=== PATIENT | female | born 1950 | race Caucasian/White ===

== ENCOUNTER 2016-08-27 22:34 | Emergency (ER) | payer MEDICARE ==
[2016-08-27 22:35] VITALS: BMI 32.5
[2016-08-27 23:03] VITALS: TEMP 98.9
[2016-08-28] MEDS ORDERED: HYDROmorphone 1 MG INJECTION IM ONE ×2 (00:10→00:49)
[2016-08-28] MEDS ORDERED: GABAPENTIN 300 MG CAP PO ONE (00:14)
--- NOTE | 2016-08-28 00:18 | EDPRACDOC ---
- General Information Information Source: Patient Mode Of Arrival: Car - History of Present Illness Onset: 24 HOURS HPI: PT STATES SHE HAS BEEN DEALING WITH RESTLESS LEG FOR YEARS AND HAD BEEN ON MIRAPEX BUT STOPPED WORKING, SAW DR. DAIGLE 1-2 DAYS AGO AND WAS CHANGED TO REQUIP AND THEN STARTED ON KLONOPIN BUT STATES THE KLONOPIN MADE IT WORSE AND THE REQUIP DIDNT HELP AT ALL. STATES SHE IS HAVING A LOT OF PAIN AND CANT SLEEP B/C HER LEGS KEEP DRAWING UP AND HURTING. Circumstances: Reports: Other (RESTLESS LEG SYNDROME) History of: Reports: Other (RLS) Severity: Reports: Moderate Able to Bear Weight: Fully Pain In: Reports: Leg (BILATERAL LEGS WORSE AT NIGHT) <Jerry Salinas - Last Filed: 08/28/16 01:50> <Faiza Fournier - Last Filed: 08/28/16 02:10> - General Information Chief Complaint: Lower Leg Pain Stated Complaint: LEG PAIN, UNABLE TO SLEEP Time Seen by Provider: 08/28/16 00:04 Home Medications: Home Medications Ciprofloxacin HCl [Cipro] 500 mg PO BID #14 tab 12/26/15 Metoprolol Tartrate 50 mg PO BID #60 tablet 12/26/15 Pramipexole [Mirapex] 0.125 mg PO HS 12/26/15 Gabapentin Enacarbil [Horizant] 600 mg PO DAILY #20 tab.er.24h 08/28/16 Oxycodone Immediate Release [Oxycodone Immediate Release (OxyIR)] 5 mg PO Q6H PRN #15 tab 08/28/16 Allergies/Adverse Reactions: Allergies Allergy/AdvReac Type Severity Reaction Status Date / Time meperidine HCl [From Demerol] Allergy Fainting Verified 10/17/14 14:32 ED Past Medical History - History Reviewed Yes Nurses notes reviewed and agree except as marked Travel Outside of [place] in the Last 3 Months?: No - Patient Medical History Cardiac History: Reports: Hypertension, Hypercholesterolemia Musculoskeletal History: Reports: Other (RESTLESS LEG SYNDROME) Psychological History: Denies: Depression Surgical History: Reports: Cholecystectomy - Social Medical History Smoking Status: Never smoker ETOH: None Substance Abuse: None Lives With: Other Lives In: Home <Jerry Salinas - Last Filed: 08/28/16 01:50> EDM Review of Systems - Review of Systems ROS Negative Except as Marked: Yes All systems reviewed and were negative except as marked Constitutional: No Symptoms Reported. negative: Fever, Chills, Weakness, Fatigue, Loss of Appetite Eyes: No Symptoms Reported. negative: Redness, Blurred Vision, Double Vision, Discharge, Pain, Light Sensitive, Photophobia Ears: No Symptoms Reported. negative: Pain, Hearing Loss, Drainage, Ear Pulling Throat: No Symptoms Reported. negative: Pain, Swelling Nose: No Symptoms Reported. negative: Congestion, Bleeding, Discharge, Injection, Swelling, Deformity, Ecchymosis, Tender, Abrasion, Laceration Mouth: No Symptoms Reported. negative: Pain, Drooling Respiratory: No Symptoms Reported. negative: Cough, Brassy Cough, Barky Cough, Shortness of Breath, Wheezing, Hemoptysis Cardiovascular: No Symptoms Reported. negative: Chest Pain, Palpitations, Syncope, Edema, Orthopnea, PND, Skin Mottling, Cyanosis Gastrointestinal: No Symptoms Reported. negative: Pain, Constipation, Nausea, Vomiting, Diarrhea, Melena, Formula Intolerance Genitourinary: No Symptoms Reported. negative: Dysuria, Hematuria, Frequency, Discharge, Bleeding, Testicular Pain, Neurological: Other (RESTLESS LEG SYNDROME WITH BILATERAL LEG PAIN AND DRAWING) . negative: Dizziness, Gait Difficulty, Headache, Numbness, Seizure, Speech Difficulty, Weakness Musculoskeletal: No Symptoms Reported. negative: Neck, Chestwall, Ribs, Back, Shoulder, Arm, Elbow, Forearm, Wrist, Hand, Pelvis, Hip, Femur, Knee, Leg, Ankle , Foot Integumentary: No Symptoms Reported. negative: Itching, Rash, Bruising, Wound Allergic/Immunologic: No Symptoms Reported. negative: Hives, Itching Hematologic: No Symptoms Reported. negative: Lymphadenopathy, Easy Bruising, Easy Bleeding Endocrine: No Symptoms Reported. negative: Weight Gain, Weight Loss Psychiatric: No Symptoms Reported. negative: Anxiety, Depression, Hallucinations, Insomnia, Suicidal <Jerry Salinas - Last Filed: 08/28/16 01:50> - Physical Exam Constitutional: No apparent distress, Alert (Awake), Other (PT IS MOVING HER LEGS ABOUT IN THE BED APPEARS TO BE LOOKING FOR COMFORTABLE POSITION.) Oriented to: Time, Person, Place Last recorded Vital Signs: Last Vital Signs Temp 98.9 F 08/27/16 23:00 Pulse 92 01/12/17 23:00 Resp 20 08/27/16 23:00 BP 153/84 08/27/16 23:00 Pulse Ox 97 08/27/16 23:00 Oxygen Pulse Oxygen Saturation 97 O2 Device Room Air Oxygen Flow Rate Fraction of Inspired Oxygen ( FIO2) - HEENT Head: Normal ( normocephalic) Eye Exam: Normal (PERRL, EOMI, Sclera white) Oropharynx: Normal (Pharynx:Moist without exudate,Gums-no swelling) Tympanic Membrane: Normal ENT EAC: Normal TMJ: Normal Nose: No Symptoms Reported (septum midline) Neck: Normal (FROM, trachea at midline) - Respiratory/Cardiovascular Respiratory: Normal - CTA (BBS clear to auscultation without adventitious sounds ) Cardiovascular: Normal (RRR without murmur, gallop or rub) - GI Auscultation: Normal (NABS) Palpation: Normal (Soft,No rebound or guarding, non distended) Tenderness: Non tender Gutierrez's Sign: Negative - Musculoskeletal Back: Normal (Non-Tender) Extremities: Normal (Normal tone, Pulses 2+ No cyanosis or edema, FROM) - Integumentary Skin: Normal, Warm, Dry Lymphatics: Normal (no adenopathy) - Neurologic Memory Impaired: Normal Motor Function: Normal (Normal tone, Pulses 2+ No cyanosis or edema, FROM) Cranial Nerve: Normal (CN II-X11 intact sensation, strength 5/5) Cerebellar: Normal Mood Description: Normal Perception: Normal <Jerry Salinas - Last Filed: 08/28/16 01:50> - Physical Exam Last recorded Vital Signs: Last Vital Signs Temp 98.9 F 08/27/16 23:00 Pulse 92 08/27/16 23:00 Resp 20 08/27/16 23:00 BP 153/84 08/27/16 23:00 Pulse Ox 97 08/27/16 23:00 Oxygen Pulse Oxygen Saturation 97 O2 Device Room Air Oxygen Flow Rate Fraction of Inspired Oxygen ( FIO2) <Faiza Fournier - Last Filed: 08/28/16 02:10> - Differential Diagnosis Other (BILATERAL LEG SPASM/RESTLESS LEG SYNDROME) <Jerry Salinas - Last Filed: 08/28/16 01:50> - Re-evaluation Re-evaluation 3 Re-evaluation Time: 01:45 (SEEN AND AGREE, NONTOXIC) <Fournier,Faiza N - Last Filed: 08/28/16 02:10> Decision Time to Discharge: 01:51 - Departure Disposition: Home Education/Counseling Given To: Patient Education/Counseling Given Regarding: Diagnosis, Treatment, Prognosis, Follow Up <Jerry Salinas - Last Filed: 08/28/16 01:50> <Faiza Fournier - Last Filed: 08/28/16 02:10> - Departure Condition: Stable Final Diagnosis: Restless leg syndrome Instructions: Restless Legs Syndrome (ED) Referrals: Lenny Daigle II, MD [Primary Care Provider] - One Week Prescriptions: Gabapentin Enacarbil [Horizant] 600 mg PO DAILY #20 tab.er.24h Oxycodone Immediate Release [Oxycodone Immediate Release (OxyIR)] 5 mg PO Q6H PRN #15 tab PRN Reason: Pain Additional Instructions: STOP YOUR REQUIP AND START GABAPENTIN KAREN, FOLLOW UP WITH YOUR PRIMARY CARE DOCTOR KAREN FOR FURTHER EVALUATION.
[2016-08-28] MEDS ORDERED: OXYCODONE HCL 5 MG TABLET PO ONE (00:49)
[2016-08-28] MEDS ORDERED: DIAZEPAM 5 MG TAB PO ONE (01:50)
[2016-08-28 02:22] VITALS: BP 153/89; PULSE 86
== END 2016-08-28 02:22 | disposition home or self-care (01) ==
LOC: ED 22:34
DX: G25.81 Restless legs syndrome (principal)
CPT/HCPCS: 96372; 99283; A9270; J1170; J3490

== ENCOUNTER 2016-08-29 15:59 | Emergency (ER) | payer MEDICARE ==
[2016-08-29 16:01] VITALS: BMI 32.5
[2016-08-29 16:16] VITALS: TEMP 97.8
[2016-08-29 16:34] LABS: AUTOMATED BASOPHIL 0.8 % (0-2); AUTOMATED EOSINOPHIL 3.5 % (0-5); AUTOMATED LYMPH 39.8 % (17-44); AUTOMATED MONOCYTE 7.9 % (3-10); MPV 8.1 fL (7.4-10.4)
[2016-08-29 16:41] LABS: LEUKOCYTES/URINE 2+ (NEGATIVE); NITRITE/URINE NEG (NEGATIVE); URINE OCCULT BLOOD 1+ (NEG/TRACE)
[2016-08-29 16:48] LABS: BLOOD UREA NITROGEN 20 MG/DL (7-17); CALCULATED OSMOLALITY 271 MOs/Kg (270-290); CHLORIDE 102 mEq/L (98-107); GLUCOSE 99 MG/DL (70-99); SODIUM LEVEL 139 mEq/L (137-146); TOTAL PROTEIN 7.7 G/DL (6.3-8.2)
[2016-08-29] MEDS ORDERED: ONDANSETRON HCL 4 MG/2 ML VIAL IV ONE (17:14)
[2016-08-29] MEDS ORDERED: MORPHINE 4 MG/ML INJECTION IV ONE (17:14)
[2016-08-29] MEDS ORDERED: SODIUM CHLORIDE 0.9% 10 ML FLUSH FLUSH PRN (17:14)
[2016-08-29] MEDS ORDERED: NS 1,000 ML IV ONE (17:14)
--- NOTE | 2016-08-29 17:17 | EDPRACDOC ---
- General Information Information Source: Patient Mode Of Arrival: Car - History of Present Illness Onset: THIS AM Pain Location: Reports: Epigastric Pain Context: Reports: Spontaneous Pain Severity: Moderate Pain Quality: Reports: Aching, Sharp Pain Radiation: Reports: No Radiation Adult Abdominal History: Reports: Abdominal Surgery Modifying Factors: improves with: Nothing Female Associated Signs & Symptoms: Denies: Nausea, Frequency, Vaginal Bleeding , Vomiting, Hematemesis, Anorexia, Diarrhea, Melena, Dysuria, Fever, Urgency, Hematuria, Chills, Vaginal Discharge, Other Oral Intake: Normal Urinary Output: Normal <Jo Shukla - Last Filed: 08/29/16 18:14> <Vicky Hinojosa - Last Filed: 08/29/16 18:53> - General Information Chief Complaint: Abdominal Pain Stated Complaint: ABD PAIN ? HERNIA Time Seen by Provider: 08/29/16 17:08 Home Medications: Home Medications Metoprolol Tartrate 50 mg PO BID #60 tablet 12/26/15 Oxycodone Immediate Release [Oxycodone Immediate Release (OxyIR)] 5 mg PO Q6H PRN #15 tab 08/28/16 ClonazePAM [Klonopin] 0.5 mg PO BID 08/29/16 Gabapentin [Neurontin] 100 mg PO TID 08/29/16 Hydrocodone/Acetaminophen [Lortab 5-325 mg Tablet] 1 each PO Q4H PRN #15 tablet 08/29/16 Pramipexole [Mirapex] 0.5 mg PO HS 08/29/16 Ropinirole HCl [Requip] 0.25 mg PO BID 08/29/16 Sulfamethoxazole/Trimethoprim [Bactrim Ds Tablet] 1 tab PO BID #14 tab 08/29/16 Allergies/Adverse Reactions: Allergies Allergy/AdvReac Type Severity Reaction Status Date / Time meperidine HCl [From Demerol] Allergy Fainting Verified 10/17/14 14:32 - History of Present Illness HPI: Pt states upper abd pain x 1 day. Pt states seh went to urgent care and told to have hernia evaluated. Denies fever, n/v, changes in bowel or bladder, rash. (Jo Shukla) ED Past Medical History - History Reviewed Yes Nurses notes reviewed and agree except as marked - Patient Medical History Cardiac History: Reports: Hypertension, Hypercholesterolemia Psychological History: Denies: Depression Surgical History: Reports: Cholecystectomy - Social Medical History Smoking Status: Never smoker ETOH: None Substance Abuse: None <Jo Shukla - Last Filed: 08/29/16 18:14> EDM Review of Systems - Review of Systems Constitutional: No Symptoms Reported. negative: Fever, Chills, Weakness, Fatigue, Loss of Appetite Ears: No Symptoms Reported. negative: Pain, Hearing Loss, Drainage, Ear Pulling Throat: No Symptoms Reported. negative: Pain, Swelling Nose: No Symptoms Reported. negative: Congestion, Bleeding, Discharge, Injection, Swelling, Deformity, Ecchymosis, Tender, Abrasion, Laceration Mouth: No Symptoms Reported. negative: Pain, Drooling Respiratory: No Symptoms Reported. negative: Cough, Brassy Cough, Barky Cough, Shortness of Breath, Wheezing, Hemoptysis Cardiovascular: No Symptoms Reported. negative: Chest Pain, Palpitations, Syncope, Edema, Orthopnea, PND, Skin Mottling, Cyanosis Gastrointestinal: Pain. negative: No Symptoms Reported, Constipation, Diarrhea , Formula Intolerance, Melena, Nausea, Vomiting Genitourinary: No Symptoms Reported. negative: Dysuria, Hematuria, Frequency, Discharge, Bleeding, Testicular Pain, Neurological: No Symptoms Reported. negative: Headache, Dizziness, Seizure, Numbness, Weakness, Speech Difficulty, Gait Difficulty Musculoskeletal: No Symptoms Reported. negative: Neck, Chestwall, Ribs, Back, Shoulder, Arm, Elbow, Forearm, Wrist, Hand, Pelvis, Hip, Femur, Knee, Leg, Ankle , Foot Integumentary: No Symptoms Reported. negative: Itching, Rash, Bruising, Wound Allergic/Immunologic: No Symptoms Reported. negative: Hives, Itching Hematologic: No Symptoms Reported. negative: Lymphadenopathy, Easy Bruising, Easy Bleeding Psychiatric: No Symptoms Reported. negative: Anxiety, Depression, Hallucinations, Insomnia, Suicidal <Sandi Shuklae E - Last Filed: 08/29/16 18:14> - Physical Exam Constitutional: Alert Oriented to: Time, Person, Place - HEENT Head: Normal ( normocephalic) Eye Exam: Normal (PERRL, EOMI, Sclera white) Neck: Normal (FROM, trachea at midline) - Respiratory/Cardiovascular Respiratory: Normal - CTA (BBS clear to auscultation without adventitious sounds ) Cardiovascular: Normal (RRR without murmur, gallop or rub) - GI Auscultation: Normal (NABS) Palpation: Normal (Soft,No rebound or guarding, non distended) Tenderness: Moderate, RUQ, Epigastric, Other (R side ventral hernia tender to palpation) - Musculoskeletal Back: Normal (Non-Tender) Extremities: Normal (Normal tone, Pulses 2+ No cyanosis or edema, FROM) - Integumentary Skin: Normal, Warm, Dry Lymphatics: Normal (no adenopathy) - Neurologic Memory Impaired: Normal Motor Function: Normal (Normal tone, Pulses 2+ No cyanosis or edema, FROM) Mood Description: Normal Perception: Normal <Jo Shukla - Last Filed: 08/29/16 18:14> - Differential Diagnosis Bowel Obstruction, Hernia, Pancreatitis, PUD - Results 08/29/16 16:19 08/29/16 16:19 <Jo Shukla - Last Filed: 08/29/16 18:14> - Re-evaluation Re-evaluation 1 Re-evaluation Time: 18:52 (IMPROVED) - Results 08/29/16 16:19 08/29/16 16:19 - Diagnostic Imaging Abdomen Image interpreted by: Radiologist <Vicky Hinojosa - Last Filed: 08/29/16 18:53> - Results WBC 6.9 xk/uL (3.8-10.8) 08/29/16 16:19 RBC 4.84 xM/uL (4.20-5.40) 08/29/16 16:19 Hgb 13.2 g/dL (12.0-16.0) 08/29/16 16:19 Hct 40.0 % (36-47) 08/29/16 16:19 MCV 83 fL (81-99) 08/29/16 16:19 MCH 27.3 pg (27-32) 08/29/16 16:19 MCHC 33.1 g/dl (33-36) 08/29/16 16:19 RDW 14.5 % (11.5-14.5) 08/29/16 16:19 Plt Count 309 xk/uL (130-400) 08/29/16 16:19 MPV 8.1 fL (7.4-10.4) 08/29/16 16:19 Neut % (Auto) 48.0 % (45-76) 08/29/16 16:19 Lymph % (Auto) 39.8 % (17-44) 08/29/16 16:19 [place] % (Auto) 7.9 % (3-10) 08/29/16 16:19 Eos % (Auto) 3.5 % (0-5) 08/29/16 16:19 Baso % (Auto) 0.8 % (0-2) 08/29/16 16:19 Absolute Neuts (auto) 3.31 xk/uL (1.7-8.2) 08/29/16 16:19 Absolute Lymphs (auto) 2.69 xk/uL (0.65-4.75) 08/29/16 16:19 Sodium 139 mEq/L (137-146) 08/29/16 16:19 Potassium 4.1 mEq/L (3.5-5.1) 08/29/16 16:19 Chloride 102 mEq/L (98-107) 08/29/16 16:19 Carbon Dioxide 27 mMOL/L (22-33) 08/29/16 16:19 Anion Gap 14 mEq/L (8-16) 08/29/16 16:19 BUN 20 MG/DL (7-17) H 08/29/16 16:19 Creatinine 0.80 MG/DL (0.52-1.04) 08/29/16 16:19 Estimated GFR (MDRD) > 60 mL/min (>=60) 08/29/16 16:19 Glucose 99 MG/DL (70-99) 08/29/16 16:19 Calculated Osmolality 271 MOs/Kg (270-290) 08/29/16 16:19 Calcium 9.0 MG/DL (8.4-10.2) 08/29/16 16:19 Total Bilirubin 0.5 MG/DL (0.2-1.3) 08/29/16 16:19 AST 22 IU/L (14-36) 08/29/16 16:19 ALT 27 IU/L (9-52) 08/29/16 16:19 Alkaline Phosphatase 101 IU/L (55-165) 08/29/16 16:19 Total Protein 7.7 G/DL (6.3-8.2) 08/29/16 16:19 Albumin 4.3 G/DL (3.5-5.0) 08/29/16 16:19 Lipase 46 U/L (23-300) 08/29/16 16:19 Urine Color Yellow 08/29/16 16:19 Urine Clarity Sl cldy 08/29/16 16:19 Urine pH 5.0 (5.0-8.0) 08/29/16 16:19 Ur Specific Cylinder 1.025 (1.003-1.035) 08/29/16 16:19 Urine Protein Neg (NEG/TRACE) 08/29/16 16:19 Urine Glucose (UA) Neg (NEGATIVE) 08/29/16 16:19 Urine Ketones Neg (NEGATIVE) 08/29/16 16:19 Urine Occult Blood 1+ (NEG/TRACE) H 08/29/16 16:19 Urine Nitrite Neg (NEGATIVE) 08/29/16 16:19 Urine Bilirubin Neg (NEGATIVE) 08/29/16 16:19 Urine Urobilinogen <2.0 MG/DL (0-1) 08/29/16 16:19 Ur Leukocyte Esterase 2+ (NEGATIVE) H 08/29/16 16:19 Urine RBC 2-5 (0-5) 08/29/16 16:19 Urine WBC 10-20 (0-5) H 08/29/16 16:19 Ur Epithelial Cells 2+ 08/29/16 16:19 Urine Bacteria 2+ (NEG/FEW) H 08/29/16 16:19 Urine Mucus Mod (NEG/OCC) H 08/29/16 16:19 Lab Results 08/29/16 08/29/16 08/29/16 16:19 16:19 16:19 WBC 6.9 RBC 4.84 Hgb 13.2 Hct 40.0 MCV 83 MCH 27.3 MCHC 33.1 RDW 14.5 Plt Count 309 MPV 8.1 Neut % (Auto) 48.0 Lymph % (Auto) 39.8 [place] % (Auto) 7.9 Eos % (Auto) 3.5 Baso % (Auto) 0.8 Absolute Neuts (auto) 3.31 Absolute Lymphs (auto) 2.69 Sodium 139 Potassium 4.1 Chloride 102 Carbon Dioxide 27 Anion Gap 14 BUN 20 H Creatinine 0.80 Estimated GFR (MDRD) > 60 Glucose 99 Calculated Osmolality 271 Calcium 9.0 Total Bilirubin 0.5 AST 22 ALT 27 Alkaline Phosphatase 101 Total Protein 7.7 Albumin 4.3 Lipase 46 Urine Color Yellow Urine Clarity Sl cldy Urine pH 5.0 Ur Specific Cylinder 1.025 Urine Protein Neg Urine Glucose (UA) Neg Urine Ketones Neg Urine Occult Blood 1+ H Urine Nitrite Neg Urine Bilirubin Neg Urine Urobilinogen <2.0 Ur Leukocyte Esterase 2+ H Urine RBC 2-5 Urine WBC 10-20 H Ur Epithelial Cells 2+ Urine Bacteria 2+ H Urine Mucus Mod H (Jo Shukla) (Vicky Hinojosa) - Diagnostic Imaging Abdomen 08/29/16 18:46 1. Small ventral hernia superior to the umbilicus and RIGHT of midline contains small amount fat inflammation. This could represent a source of pain. 2. Tiny umbilical hernia. 3. Mild sigmoid diverticulosis. 4. Cholecystectomy. (Vicky Hinojosa) - Additional Information Final disposition given to Dr Hinojosa at 1815 (Jo Shukla) - Departure Education/Counseling Given To: Patient Education/Counseling Given Regarding: Diagnosis, Treatment <Jo Shukla - Last Filed: 08/29/16 18:14> Decision Time to Discharge: 18:47 - Departure Yes I personally saw and evaluated the patient. Disposition: Home <Vicky Hinojosa - Last Filed: 08/29/16 18:53> - Departure Final Diagnosis: Ventral hernia UTI (urinary tract infection) Qualifiers: Urinary tract infection type: acute cystitis Hematuria presence: without hematuria Qualified Code(s): N30.00 - Acute cystitis without hematuria Instructions: Urinary Tract Infection in Women (ED), Ventral Hernia (ED) Referrals: Lenny Venegas II, MD [Primary Care Provider] - One Week Art Choe MD [Staff Physician] - One Week Prescriptions: Hydrocodone/Acetaminophen [Lortab 5-325 mg Tablet] 1 each PO Q4H PRN #15 tablet PRN Reason: Pain Sulfamethoxazole/Trimethoprim [Bactrim Ds Tablet] 1 tab PO BID #14 tab
[2016-08-29] MEDS ORDERED: Pharmacy Review for Metformin - IV Contrast Given SCH (18:00)
--- NOTE | 2016-08-29 18:43 | DIRPT ---
CLINICAL DATA: Abdominal pain. Question hernia. EXAM: CT ABDOMEN AND PELVIS WITH CONTRAST TECHNIQUE: Multidetector CT imaging of the abdomen and pelvis was performed using the standard protocol following bolus administration of intravenous contrast. CONTRAST: 100 mL Isovue COMPARISON: CT thorax 09/02/2007 FINDINGS: Lower chest: Lung bases are clear. Hepatobiliary: Small hypodense lesion in the RIGHT hepatic lobe likely represents benign cyst. No biliary duct dilatation. Postcholecystectomy. Common bile duct normal. Pancreas: Pancreas is normal. No ductal dilatation. No pancreatic inflammation. Spleen: Normal spleen Adrenals/urinary tract: Adrenal glands and kidneys are normal. The ureters and bladder normal. Stomach/Bowel: Stomach, duodenum, small bowel are normal. The cecum is in the LEFT abdomen. Appendix is not identified. No evidence of bowel obstruction. There are several diverticulum of sigmoid colon without acute inflammation. Vascular/Lymphatic: Abdominal aorta is normal caliber with atherosclerotic calcification. There is no retroperitoneal or periportal lymphadenopathy. No pelvic lymphadenopathy. Reproductive: Post hysterectomy. Other: Tiny umbilical hernia which is fat filled measuring only 6 mm. No inguinal hernia. There is a more superior ventral hernia just RIGHT of midline above the umbilicus measuring 2 cm (image 43, series 3). There is mild inflammation of the fat within this hernia sac. Musculoskeletal: No aggressive osseous lesion. IMPRESSION: 1. Small ventral hernia superior to the umbilicus and RIGHT of midline contains small amount fat inflammation. This could represent a source of pain. 2. Tiny umbilical hernia. 3. Mild sigmoid diverticulosis. 4. Cholecystectomy. Electronically Signed By: Ian Ramirez M.D. On: 08/29/2016 18:40
[2016-08-29] MEDS ORDERED: OXYCODONE HCL 5 MG TABLET PO ONE (18:53)
[2016-08-29] MEDS ORDERED: TRIMETHOPRIM-SULFAMETHOXAZOLE TAB PO ONE (18:53)
[2016-08-29 19:38] VITALS: BP 212/100; PULSE 72
== END 2016-08-29 19:25 | disposition home or self-care (01) ==
LOC: ED 15:59
DX: R10.13 Epigastric pain (principal); N30.00 Acute cystitis without hematuria
CPT/HCPCS: 36415; 74177; 80053; 81001; 83690; 85025; 96361; 96374; 96375; 99284; A9270; A9698; J2270; J2405; J3490

== ENCOUNTER → 2016-09-23 | Day surgery (SDC) | payer MEDICARE ==
[2016-08-29 16:01] VITALS: BMI 32.5
[~2016-09-23] MED LIST: BUPIVACAINE 0.5% 30 ML VIAL ONE; CEFAZOLIN 1 GM VIAL ONE; DEXAMETHASONE 4 MG/ML VIAL IV ONE; EPHEDrine 50 MG/ML VIAL IM ONE; FENTANYL 100 MCG/2 ML VIAL IV ONE; FENTANYL 100 MCG/2 ML VIAL IV PRN; FENTANYL 100 MCG/2 ML VIAL ONE; GLYCOPYRROLATE 1 MG VIAL IM ONE; HYDROmorphone 1 MG INJECTION IV PRN; LABETALOL 20 MG/4 ML SYRINGE IV PRN; LABETALOL 5 MG/ML MDV IV ONE; MIDAZOLAM 2 MG/2 ML VIAL IV ONE; NEOSTIGMINE 1 MG/1 ML (1:1000) INJ 10 ML MDV IM ONE; ONDANSETRON HCL 4 MG ODT TAB PO PRN; ONDANSETRON HCL 4 MG/2 ML VIAL IV ONE; ONDANSETRON HCL 4 MG/2 ML VIAL IV PRN; OXYCODONE HCL 5 MG TABLET ONE; PROPOFOL 200 MG/20 ML VIAL IV ONE; ROCURONIUM 50 MG/5 ML VIAL IV ONE; hydrALAZINE 20 MG/ML VIAL IV PRN
[2016-09-23] MEDS: CEFAZOLIN 1 GM VIAL ONE ×2 (06:19→07:47)
--- NOTE | 2016-09-23 06:23 | HIM.ANES ---
Anesthesia Evaluation & Plan Diagnoses: UMBILICAL HERNIA WITHOUT OBSTRUCTION OR GANGRENE (09/23/16) VENTRAL HERNIA WITHOUT OBSTRUCTION OR GANGRENE (09/23/16) - Focused Review of Systems Cardiac History: Yes: Hx Hypertension, Hx Cardiac Disorders, Hx Abnormal Cholesterol/Hyperlipidemia HEENT: Yes: Cataract Removal (BILATERAL), Other HEENT Problems Gastrointestinal: Yes: Hx Gastrointestinal Disorders, Hx Colonoscopy (03/2016), Hx Endoscopy (MANY YEARS AGO) Neurological/Musculoskeletal: Yes: Hx Back Pain, Hx Neurological Disorders Other Neurological Problems: SEVERE RESTLESSLEG SYNDROME Psychological: No Hx Depression, No Hx Mental/Emotional Disorders Blood/Autoimmune: No: Hx AIDS, Hx Hepatitis (type) Smoking Status: Never smoker Surgical History: Yes: Cholecystectomy () Other Surgical History: TOTAL HYSTERECTOMY 1983 - Focused Physical Exam Mallampati: Class II Thyromental Distance: Greater than 3 Neck: Full Range of Motion Dental: Removable Dental Work Cardiovascular/Chest: Normal Respiratory: Lungs clear Any problems with anesthesia, including nausea and vomiting?: Yes (NAUSEA) Any relatives with a history of Malignant Hyperthermia?: No Does the patient have a history of Motion Sickness-: No Other: Allergies Allergy/AdvReac Type Severity Reaction Status Date / Time meperidine HCl [From Demerol] Allergy Fainting Verified 09/23/16 06:18 Home Medications Medication Instructions Recorded Last Taken Type Metoprolol Tartrate 50 mg PO BID #60 tablet 12/26/15 09/22/16 18:00 Rx Pramipexole [Mirapex] 0.5 mg PO HS 08/29/16 09/22/16 18:00 History Aspirin [Aspirin EC] 81 mg PO DAILY 09/22/16 1 Week Ago History Lisinopril 10 mg PO DAILY 09/22/16 09/22/16 18:00 History Simvastatin [Zocor] 20 mg PO HS 09/22/16 09/22/16 18:00 History Height and Weight Patient's height 5 ft 9 in Patient's weight 99.79 kg BMI 32.5 - Anesthetic Plan Anesthesia Type: General ASA Class: 3 -: I have examined this patient and reviewed the medical record. The patient has been assessed prior to anesthesia. Risks and benefits of anesthesia and anesthetic technique options have been discussed and all questions answered. The patient accepts the risk and desires me to proceed with the planned anesthetic.
[2016-09-23 06:30] LABS: LEUKOCYTES/URINE 2+ (NEGATIVE); NITRITE/URINE NEG (NEGATIVE); URINE OCCULT BLOOD 1+ (NEG/TRACE)
--- NOTE | 2016-09-23 08:33 | HIMOPRPT ---
DATE OF PROCEDURE: 09/23/16 PREOPERATIVE DIAGNOSIS: Incarcerated ventral abdominal hernia, umbilical hernia POSTOPERATIVE DIAGNOSIS: Incarcerated ventral abdominal hernia, incarcerated incisional hernia and umbilical trocar site. PROCEDURES: Repair of incarcerated ventral abdominal hernia with placement of an 8 cm Bard Ventralex mesh, repair of incarcerated incisional hernia with placement of an 8 cm Bard Ventralex mesh. SURGEON: Art Choe MD ANESTHESIA: General. COMPLICATIONS: None. SPECIMENS: None. PACKINGS AND DRAINS: None. BLOOD LOSS: 3 cc OPERATIVE FINDINGS AND TECHNIQUE: With consent, the patient was brought to the operative suite, placed in supine position. Following general anesthesia, the abdomen was prepped and draped in usual fashion. A right upper abdominal incision was made overlying the most easily palpable area of the ventral abdominal hernial defect. Dissection was carried down to the level of the fascia. The fascia was identified. There was an obvious fascial defect. Preperitoneal dissection was undertaken. The fascia defect measured approximately 2 cm. An 8 cm Bard Ventralex was chosen for the repair. This was placed in the subfascial location and deployed appropriately. The Ventralex was secured circumferentially using interrupted horizontal mattress sutures of 0 Vicryl. Wound was irrigated and dried. Hemostasis was achieved. The hernial defect was reapproximated over the mesh using interrupted figure-of- eight 0-Vicryl suture. Wound was irrigated and dried. Deep, subcutaneous, and subcuticular tissues were injected with 0.25% Marcaine. Subcutaneous tissue was reapproximated using the 3-0 Vicryl, and skin approximation was accomplished using 4-0 Monocryl in subcuticular fashion. Dermabond, 2 x 2 gauze, and Tegaderm dressing were applied to the wound. The patient tolerated the procedure well. There was no pathologic specimen. Following this, a curvilinear infraumbilical incision was made. Dissection was carried down to the level of the fascia. The fascia was identified. There was an obvious fascial defect. Superior to this was an additional fascial defect. The total length of the defects was approximately 2 cm. Preperitoneal dissection was undertaken. The total fascia defect measured approximately 2 cm. An 8 cm Bard Ventralex was chosen for the repair. This was placed in the subfascial location and deployed appropriately. The Ventralex was secured circumferentially using interrupted horizontal mattress sutures of 0 Vicryl. Wound was irrigated and dried. Hemostasis was achieved. The hernial defect was reapproximated over the mesh using interrupted [id number] 0-Vicryl suture. Wound was irrigated and dried. Deep, subcutaneous, and subcuticular tissues were injected with 0.25% Marcaine. Subcutaneous tissue was reapproximated using the 3-0 Vicryl, and skin approximation was accomplished using 4-0 Monocryl in subcuticular fashion. Dermabond, 2 x 2 gauze, and Tegaderm dressing were applied to the wound. The patient tolerated the procedure well. There was no pathologic specimen.
[2016-09-23] MEDS: FENTANYL 100 MCG/2 ML VIAL IV PRN ×3 (09:01→09:48)
[2016-09-23 09:37] VITALS: TEMP 97.1
[2016-09-23 11:23] VITALS: PULSE 73
[2016-09-23 17:10] VITALS: BP 128/69
--- NOTE | 2016-09-23 17:10 | SC.ANESPOS ---
Post-Anesthesia Note LOC: Fully Awake Post-Anesthesia Assessment: Awake, Returned to Baseline, Hemodynamically Stable , Pain Control Adequate Phase I & II Recovery Complete: Yes Apparent Anesthesia Complication: No : N PACU Discharge Time: 10:30 - Vital Signs Blood Pressure: 128/69 Pulse: 73 Resp Rate: 18 O2 Sat: 94 Temp: 97.1 F - Comments Anesthesia Discharge Time Report Time 10:30
== END ==
LOC: SDC 05:49
PROVIDERS: ATTEND Surgery Vascular Surgery
PROC: 0WUF0JZ Supplement Abdominal Wall with Synthetic Substitute, Open Approach (ICD-10-PCS; principal; 2016-09-23 07:15)
DX: K43.6 Other and unspecified ventral hernia with obstruction, without gangrene (principal); K43.0 Incisional hernia with obstruction, without gangrene; K42.9 Umbilical hernia without obstruction or gangrene; I10 Essential (primary) hypertension; E78.5 Hyperlipidemia, unspecified; F41.9 Anxiety disorder, unspecified; E66.9 Obesity, unspecified; Z68.36 Body mass index [BMI] 36.0-36.9, adult; Z90.49 Acquired absence of other specified parts of digestive tract; Z79.899 Other long term (current) drug therapy
CPT/HCPCS: 49561; 49568; 49585; 81001; A9270; C1781; J0690; J3010; J1100; J2250; J2405; J2710; J3490